=== PATIENT | male | born 1990 | race Asian ===

== ENCOUNTER 2019-05-17 07:25 | Emergency (ER) | payer MEDICAID ==
[~2019-05-17] VITALS: Ht 175.3 cm; Wt 77.3 kg
[2019-05-17] MEDS ORDERED: ADV250 IH (07:42)
[2019-05-17] MEDS ORDERED: GUAI600T50 PO (07:42)
[2019-05-17] MEDS ORDERED: ACETAMINOPHEN 500 MG TABLET PO ONE (09:00)
[2019-05-17] MEDS ORDERED: PredniSONE 20 MG TABLET PO ONE (09:00)
[2019-05-17] MEDS ORDERED: DIPHENOXYLATE/ATROP 2.5-0.025 MG TABLET PO ONE (09:00)
[2019-05-17] MEDS ORDERED: ALBUTEROL SULFATE 2.5 MG/0.5 ML NEB SOLUTION NEB ONE (09:00)
[2019-05-17] MEDS ORDERED: IPRATROPIUM BROMIDE 0.5 MG/2.5 ML NEB SOLUTION NEB ONE (09:00)
[2019-05-17 09:31] VITALS: BP 124/82
== END 2019-05-17 10:19 | disposition home or self-care (01) ==
LOC: EMS 07:25
DX: J45.901 Unspecified asthma with (acute) exacerbation (principal); K52.9 Noninfective gastroenteritis and colitis, unspecified; F17.210 Nicotine dependence, cigarettes, uncomplicated; Z79.899 Other long term (current) drug therapy
CPT/HCPCS: 94640; 99284; J7512

== ENCOUNTER 2022-04-30 12:57 | Emergency (ER) | payer MEDICAID ==
[~2022-04-30] VITALS: Ht 175.3 cm; Wt 75.0 kg
[~2022-04-30 12:57] MED LIST: FLUT1DIS6 IH; GUAI600T50 PO
[2022-04-30] MEDS ORDERED: ALBU8HFA IH ×2 (13:10→13:37)
[2022-04-30] MEDS ORDERED: DEXAMETHASONE 4 MG TABLET PO ONE (13:45)
[2022-04-30] MEDS ORDERED: ALBUTEROL SULFATE HFA 90 MCG/PUFF 8 GM INHALER IH ONE (13:45)
[2022-04-30 14:14] LABS: COVID AG,FIA SOURCE NASOPHARYNGEAL
[2022-04-30 14:46] LABS: INFLUENZA TYPE A NEGATIVE FOR TYPE A (NEGATIVE); INFLUENZA TYPE B NEGATIVE FOR TYPE B (NEGATIVE)
[2022-04-30 15:21] VITALS: BP 132/80
== END 2022-04-30 15:32 | disposition home or self-care (01) ==
LOC: EMS 13:09
DX: J45.901 Unspecified asthma with (acute) exacerbation (principal); F17.210 Nicotine dependence, cigarettes, uncomplicated; Z20.822 Contact with and (suspected) exposure to COVID-19
CPT/HCPCS: 99284; 71045; 87426; 87804; 94640; J8540; J3535